=== PATIENT | male | born 1955 | race Caucasian/White ===

== ENCOUNTER 2017-12-02 07:05 | Day surgery (SDC) | payer MEDICARE ==
[2017-12-02] MEDS ORDERED: fentaNYL CITRATE/PF 100 MCG/2 ML AMP ONE (07:28)
[2017-12-02] MEDS ORDERED: MIDAZOLAM HCL 5 MG/5 ML VIAL ONE ×2 (07:28→07:29)
[2017-12-02] MEDS ORDERED: SIMETHICONE 40 MG/0.6 ML ML ONE (07:29)
[2017-12-02 09:57] VITALS: BP_SYST 150
== END 2017-12-02 09:35 | disposition home or self-care (01) ==
LOC: SDS 07:05
PROVIDERS: ATTEND Surgery
DX: Z12.11 Encounter for screening for malignant neoplasm of colon (principal); Z09 Encounter for follow-up examination after completed treatment for conditions other than malignant neoplasm; Z86.010 Personal history of colon polyps; K64.8 Other hemorrhoids; Z79.84 Long term (current) use of oral hypoglycemic drugs
CPT/HCPCS: 45378; J2250; J3010